=== PATIENT | female | born 1980 | race Caucasian/White ===

== ENCOUNTER 2018-12-20 16:08 | Emergency (ER) | payer OTHER ==
[2018-12-20 16:13] VITALS: BP 130/81
--- NOTE | 2018-12-20 16:27 | EDPHY ---
H & P Smoking Status: Never smoked Time Seen by Provider: 12/20/18 16:14 HPI/ROS: CHIEF COMPLAINT: Finger dislocation HISTORY OF PRESENT ILLNESS: 38-year-old [id number] female complaining of acute dislocation to the right 5th digit PIP joint when her dog's leash pulled on her finger. She left she went to urgent care in [place] however they are unable to reduce it, subsequently referred the patient to [facility] urgent care and they referred the patient to the emergency department. This has been dislocated for approximately 4.5 hr at this point. PHYSICAL EXAM (Prior to examination, patient consented to physical exam, hands were washed and my usual and customary physical exam procedures followed) 1) GENERAL: Well-developed, well-nourished, alert and oriented. Appears to be in no acute distress. 2) HEAD: Normocephalic 3) HEENT: sclera anicteric 4) LUNGS: Breathing comfortably. 5) SKIN: Intact skin. No skin changes. No puncture wound. No ecchymosis. Limited range of motion to the 5th digit PIP joint. No tenting of tissue. 6) MUSCULOSKELETAL: Limited range of motion 5th digit PIP joint secondary to pain and visible step-off deformity at said joint. 7) NEUROLOGIC: Two-point discrimination intact distally (JessiSigrid) Constitutional: Initial Vital Signs Temperature (C) 36.7 C 12/20/18 16:10 Heart Rate 84 12/20/18 16:10 Respiratory Rate 18 12/20/18 16:10 Blood Pressure 130/81 H 12/20/18 16:10 O2 Sat (%) 93 12/20/18 16:10 O2 Delivery Mode Room Air Allergies/Adverse Reactions: No Known Allergies Allergy (Verified 12/20/18 16:10) Home Medications: Medication Instructions Recorded Citalopram 12/20/18 MDM/Departure - MDM Procedures: Procedure: Dislocation reduction. Digital nerve block of 1% plain bupivacaine administered by myself and allowed to take effect. The dislocation of the right 5th digit PIP joint was reduced using traction and counter traction technique without complications. Post reduction the patient's neurovascular exam is normal. Post reduction x-ray demonstrates reduction of the joint to the anatomic position. The procedure was performed by myself. Procedure: Splint A diomedes-tape and aluminum finger splint was applied by ER predictive maintenance technician. After application of the splint I returned and re-examined the patient. The splint was adequately immobilizing the joint and distal to the splint the patient's circulation and sensation were intact. Patient shows no signs of compartment syndrome. Was given orthopedic precautions. (Sigrid Bowen) ED Course/Re-evaluation: Re-evaluation with serial exams. Patient is neurovascular intact with pre and post reduction. She has been splinted. Recommend follow up with Hand surgery. Given my usual and customary orthopedic precautions instructions. Care of patient under supervision of secondary supervising physician Dr Jackson . ( Sigrid Bowen) The patient was evaluated and managed by the Physician Lead Software Tester. My co- signature indicates that I have reviewed this chart and I agree with the findings and plan of care as documented. I am the secondary supervising physician. (Mavis Jackson) - Depart Disposition: Home, Routine, Self-Care Clinical Impression: Dislocation, finger Qualifiers: Encounter type: initial encounter Qualified Code(s): S63.259A - Unspecified dislocation of unspecified finger, initial encounter Condition: Good Instructions: Finger Dislocation (ED) Additional Instructions: Return to the ER immediately if you experience discoloration, have worsening pain, numbness, tingling, or any other symptoms that concern you. If you received x-rays in the emergency department today, be advised, that ligamentous , tendon, muscular, and other non-bony injury cannot be fully ruled out. Try to keep your affected extremity elevated above the level of your chest, and keep cold packs on the affected area, for the next 48 hours. Referrals: Zachary Rodriguez MD [Medical Doctor] - 2-3 days, call for appt.
== END 2018-12-20 17:06 | disposition home or self-care (01) ==
PROC: 0RSWXZZ Reposition Right Finger Phalangeal Joint, External Approach (ICD-10-PCS; principal; 2018-12-20)
DX: S63.276A Dislocation of unspecified interphalangeal joint of right little finger, initial encounter (principal); X50.9XXA Other and unspecified overexertion or strenuous movements or postures, initial encounter; Y93.K1 Activity, walking an animal; Y92.9 Unspecified place or not applicable
CPT/HCPCS: L3925